=== PATIENT | female | born 1975 | race African-American/Black ===

== ENCOUNTER 2018-12-19 01:49 | Emergency (ER) | payer OTHER ==
[~2018-12-19] VITALS: Ht 154.9 cm; Wt 78.0 kg
[2018-12-19 02:31] VITALS: BP 109/54
[2018-12-19 02:49] LABS: EOSINOPHILS % 0.8 % (0.0-5.0); HEMATOCRIT. 33.2 % (36.0-48.0); HEMOGLOBIN. 11.2 g/dL (12.0-16.0); LYMPHOCYTES % 36.6 % (20.0-50.0); MEAN CORPUSCULAR HEMOGLOBIN 29.3 pg (28.0-32.0); MEAN CORPUSCULAR VOLUME 86.5 fL (81.0-99.0); MEAN PLATELET VOLUME 9.6 fl (7.4-10.4); MONOCYTES % 9.8 % (2.0-8.0); NEUTROPHILS % 51.8 % (40.0-76.0); PLATELET 229 x1000/uL (130-400); RED BLOOD CELL COUNT 3.84 mill/uL (4.2-5.4); RED CELL DISTRIBUTION WIDTH 13.6 % (11.6-14.6)
[2018-12-19 02:59] LABS: CHLORIDE 108 mEq/L (98-107)
== END 2018-12-19 04:08 | disposition home or self-care (01) ==
LOC: ER 01:49
DX: R55 Syncope and collapse (principal); E87.6 Hypokalemia; I10 Essential (primary) hypertension; Z88.0 Allergy status to penicillin
CPT/HCPCS: 36415; 81025; 93005; 99284